=== PATIENT | male | born 1980 | race Caucasian/White ===

== ENCOUNTER 2023-04-06 17:17 | Emergency (ER) | payer OTHER ==
[2023-04-06] VITALS (16 sets, daily range): BP systolic 137–168; BP diastolic 90–109
[~2023-04-06] VITALS: Ht 175.3 cm; Wt 74.8 kg
[2023-04-06] MEDS ORDERED: PROTONIX20 M1 PO (17:43)
[2023-04-06 17:44] LABS: HEMATOCRIT 36.5 % (39.0-50.0); HEMOGLOBIN 12.4 g/dl (14.0-18.0); IMMATURE GRANULOCYTES 1.1 % (0.0-5.0); LYMPH% 2.4 % (15-41); MEAN CELL VOLUME 81.3 fL CALC (80.0-100.0); MEAN CORPUSCULAR HGB 27.6 pG CALC (26.0-32.0); MONO% 6.9 % (2-13); NEUT# 18.25 thou/uL (1.82-7.42); NEUT% 89.6 % (42-76); RED BLOOD COUNT 4.49 mill/uL (4.70-6.10)
[2023-04-06] MEDS ORDERED: GLUCOTROL XL5 MG PO (17:44)
[2023-04-06] MEDS ORDERED: NOVOLIN R100 UNIT/1 (17:44)
[2023-04-06] MEDS ORDERED: LISINOPRIL2.5 MG PO (17:45)
[2023-04-06 17:59] LABS: ALBUMIN 3.7 g/dL (3.2-5.0); ALKALINE PHOSPHATASE 105 u/l (38-126); ANION GAP 23 (6-22 (CALC)); BILIRUBIN, TOTAL 1.1 mg/dL (0.2-1.3); BUN 14 mg/dL (9-20); BUN/CREATININE RATIO 18 (12-20 (CALC)); CARBON DIOXIDE 14 mmol/l (22-30); CHLORIDE 98 mmol/l (95-108); CREATININE 0.8 mg/dL (0.7-1.3); GFR FOR AFR.AMER. > 60 ML/MIN (>=60 (CALC)); GFR OTHER RACES > 60 ML/MIN (>=60 (CALC)); LIPASE < 10 u/l (23-300); POTASSIUM 3.7 mmol/l (3.5-5.1); SGOT/AST 29 u/l (17-59); SODIUM 131 mmol/l (137-146); TOTAL PROTEIN 7.8 g/dL (6.3-8.2)
[2023-04-06 19:48] LABS: URINE BLOOD DIPSTICK Moderate (NEGATIVE); URINE GLUCOSE - DIPSTICK 500 mg/dL (NEGATIVE); URINE KETONE >=160 mg/dL (NEGATIVE); URINE LEUK ESTERASE Negative (NEGATIVE); URINE NITRITE - DIPSTICK Negative (Negative); URINE PH 5.5 (4.5-8.0); URINE PROTEIN - DIPSTICK >=300 mg/dL (NEG-TRACE); URINE SPECIFIC GRAVITY >=1.030; URINE UROBILINOGEN - DIPSTICK 0.2 E.U./dL (0.2)
[2023-04-06 19:58] LABS: URINE COLOR Yellow
[2023-04-06 20:08] LABS: URINE WBC 0-2 WBC/hpf (0-5)
== END 2023-04-06 22:11 | disposition short-term general hospital (02) | DRG 999 ==
LOC: ED 17:17 → ED-I 19:40 → ED 22:11
PROVIDERS: Nurse Practitioner
PROC: 0T9B70Z Drainage of Bladder with Drainage Device, Via Natural or Artificial Opening (ICD-10-PCS; principal; 2023-04-06)
DX: A41.9 Sepsis, unspecified organism (principal); J18.9 Pneumonia, unspecified organism; E11.10 Type 2 diabetes mellitus with ketoacidosis without coma; R33.9 Retention of urine, unspecified; I10 Essential (primary) hypertension; K21.9 Gastro-esophageal reflux disease without esophagitis; Z79.4 Long term (current) use of insulin; Z79.84 Long term (current) use of oral hypoglycemic drugs
CPT/HCPCS: S0164